=== PATIENT | male | born 1970 | race Caucasian/White ===

== ENCOUNTER 2018-11-07 13:41 | Inpatient (IN) | payer OTHER ==
[~2018-11-07] VITALS: Ht 175.3 cm; Wt 98.0 kg
[2018-11-07] MEDS ORDERED: MORPHINE SULFATE 4 MG/ML SYR/VIAL ONE (13:48)
[2018-11-07] MEDS ORDERED: HEPARIN SODIUM (PORCINE) 5000 UNITS/ML 1ML VIAL ONE (13:49)
[2018-11-07] MEDS ORDERED: ATROPINE SULFATE 1 MG/1 ML VIAL ONE (13:51)
[2018-11-07] MEDS ORDERED: EPINEPHrine HCL 1 MG/10 ML SYRG ONE (13:51)
[2018-11-07] MEDS ORDERED: SODIUM CHL 0.9% 50 ML ONE (13:51)
[2018-11-07] MEDS ORDERED: ANGIOMAX 250 MG VIAL IV ONE (13:51)
[2018-11-07] MEDS ORDERED: MIDAZOLAM HCL 1MG/1ML-2 ML VIAL ONE (13:51)
[2018-11-07] MEDS ORDERED: fentaNYL CITRATE 100 MCG/2 ML VL ONE (13:51)
[2018-11-07] MEDS ORDERED: METOPROLOL TARTRATE 1MG/1ML-5ML VIAL IV ONE ×2 (13:52→14:00)
[2018-11-07] MEDS ORDERED: LIDOCAINE 2%HCL (LOCAL ANESTH.) INJ 20ML MDV ONE (13:55)
[2018-11-07] MEDS ORDERED: IODIXANOL 320MG/ML 100ML BTL IV ONE (13:55)
[2018-11-07] MEDS ORDERED: HEPARIN SODIUM (PORCINE) 5000 UNITS/ML 1ML VIAL IV ONE (14:00)
[2018-11-07] MEDS ORDERED: MORPHINE SULF INJ 2 MG/ML SYRINGE 1ML IV PRN ×2 (14:00→15:30)
[2018-11-07] MEDS ORDERED: MORPHINE SULF INJ 2 MG/ML SYRINGE 1ML ONE (14:06)
[2018-11-07 14:22] LABS: Basophils # (auto) 0.1 uL; Basophils % (auto) 0.9 % (0.0-2.0); Eosinophils # (auto) 0.2 uL; Eosinophils % (auto) 2.1 % (0.0-7.0); Hematocrit 47.7 % (41.0-53.0); Hemoglobin 16.8 g/dL (13.5-17.5); Lymphocytes # (auto) 2.5 uL; Lymphocytes % (auto) 31.1 % (10.0-50.0); Mean Corpuscular Hemoglobin 30.6 pg (28.0-32.0); Mean Corpuscular Hgb Conc. 35.1 g/dL (32.0-36.0); Mean Corpuscular Volume 87.1 fL (80.0-100.0); Monocytes % (auto) 12.6 % (0.0-12.0); Neutrophils # (auto) 4.2 uL; Neutrophils % (auto) 53.3 % (37.0-80.0); Nucleated Red Blood Cells % 0.2 %; Platelet Count (auto) 219 10^3/uL (140-450); Red Blood Cells 5.48 10^6/uL (4.5-5.90); Red Cell Distribution Width 12.9 % (11.8-14.3); White Blood Cell 7.9 10^3/uL (4.4-10.8)
[2018-11-07] MEDS ORDERED: BUPIVACAINE 0.25% INJ 50ML VIAL ONE (14:32)
[2018-11-07 14:40] LABS: Chloride 107 mmol/L (98-107); Sodium 139 mmol/L (136-145)
[2018-11-07] MEDS ORDERED: NITROGLYCERIN 0.4MG/DOSE SPRAY 4.9GM ONE (14:46)
[2018-11-07 14:50] LABS: Albumin 3.8 g/dL (3.4-5.0); Anion Gap 12 (5-15); Blood Urea Nitrogen 19 mg/dL (7-18); Calcium 8.3 mg/dL (8.5-10.1); Carbon Dioxide 20 mmol/L (21-32); Glucose 115 mg/dL (74-106); INR 1.03 (0.9-1.15)
[2018-11-07 14:55] LABS: Alanine Aminotransferase 32 U/L (16-61); Alkaline Phosphatase 63 U/L (45-117); Aspartate Aminotransferase 24 U/L (15-37); BUN/Creatinine Ratio 19.2; Bilirubin, Total 0.8 mg/dL (0.2-1.0); GFR African American 105 mL/min; GFR Non-African American 86 mL/min; Total Protein 6.9 g/dL (6.4-8.2)
[2018-11-07] MEDS ORDERED: EPTIFIBATIDE INJ (2MG/ML) 10ML VIAL IV ONE (14:55)
[2018-11-07] MEDS ORDERED: CLOPIDOGREL 300 MG TAB ONE (15:04)
[2018-11-07 15:05] LABS: Partial Thromboplastin Time 154.3 sec (23.78-33.04)
[2018-11-07 15:17] LABS: Potassium 2.8 mmol/L (3.5-5.1)
[2018-11-07] MEDS ORDERED: NITROGLYCERIN 0.4 MG SL TAB SL PRN (15:30)
[2018-11-07] MEDS ORDERED: ONDANSETRON HCL 4 MG/2 ML VIAL IV PRN (15:30)
[2018-11-07] MEDS ORDERED: SODIUM CHLORIDE 0.9% 1,000 ML IV ONE (15:30)
[2018-11-07] MEDS ORDERED: POTASSIUM CHL 10% (20 MEQ/15ML) 15ml ORAL SOLN PO ONE (15:30)
[2018-11-07] MEDS ORDERED: HYDROcodone-ACET 5/325MG TAB PO PRN (15:30)
[2018-11-07] MEDS ORDERED: ACETAMINOPHEN 500 MG TAB PO PRN (15:30)
[2018-11-07] MEDS ORDERED: SIMV-13 PO (15:48)
[2018-11-07] MEDS ORDERED: PANT40T PO (15:48)
[2018-11-07] MEDS ORDERED: ASPI81TA27 PO (15:48)
--- NOTE | 2018-11-07 16:50 | NUR ---
Report received from BRANDON ALFORD. 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 Patient transfered to unit bed, connected to environmental compliance technician #2 reading sinus pedro 51. Catheterization site assessed for any bleeding, redness or swelling. Pedal pulses on affected leg assessed for positive tissue perfusion. Patient instructed on need to notify staff immediately if any pain, burning or wetness to site, and any lower back pain. Patient educated on new cardiac medications. All questions and concerns addressed, patient verbalized understanding of all education and instruction. Bed at reverse trendelenbug position, instructed to lie flat for another 30 minutes, verbalized understanding. Side-rails up x2 for safety, call light on hand, instructed to call for assistance PRN.
--- NOTE | 2018-11-07 19:00 | NUR ---
CRITICAL TROPONIN OF 29.9 ASSESSED PATIENT, AWAKE AND ALERT, CURRENTLY EATING DINNER WITH FAMILY AT BEDSIDE. NO COMPLAINTS OF CHEST PAIN SOB OR DISTRESS AT THIS TIME. WILL CONTINUE TO MONITOR Q1HR AND PRN.
[2018-11-07 20:00] VITALS: BP 175/112
[2018-11-07 21:48] VITALS: BP 145/81
[2018-11-07] MEDS: SODIUM CHLOR 0.9% PF (SALINE LOCK) 10ML VIAL/SYR IV SCH (22:53)
--- NOTE | 2018-11-08 04:00 | NUR ---
Patient c/o chest pain for the first time since before heart cath. Vitals stable. Nitro given x2 along with morphine x1 per orders. Patient had some relief. Patient also stated " I have anxiety as well which could be that making it worse. "Instructed deep breathing exercises as well as a dark quiet environment. Hasnt slept much through the night. EKG done. No changes from previous EKG yesterday. Will page Dr. Castillo as well. Continuing to monitor closely.
[2018-11-08 05:00] VITALS: BP 115/76
--- NOTE | 2018-11-08 05:30 | NUR ---
Paged Jonathan to notify him of elevated troponin and chest pain earlier. Awaiting return phone call. Patient feeling better. Resting at this time. Call light within reach.
[2018-11-08] MEDS: SODIUM CHLOR 0.9% PF (SALINE LOCK) 10ML VIAL/SYR IV SCH ×3 (06:00→23:05)
--- NOTE | 2018-11-08 07:09 | NUR ---
Text Dr. Castillo to report troponin level and to update on patients night. Pt resting at this time. No distress noted. Awaiting response from MD. Will endorse to Day RN
--- NOTE | 2018-11-08 07:20 | NUR ---
Opening Shift Note Assumed care of patient, awake and alert. No S/S of distress/SOB or pain. Instructed on POC and to call for assist PRN, will continue to monitor for changes Q1hr and PRN.
[2018-11-08 08:00] VITALS: BP 114/70
--- NOTE | 2018-11-08 08:12 | NUR ---
Critical Troponin Troponin 90.5. Patient asymptomatic. Dr. Jonathan walters.
[2018-11-08 08:16] VITALS: BP 114/70
[2018-11-08] MEDS: ASPirin 81 mg TAB PO SCH (09:10)
[2018-11-08] MEDS: ATORVASTATIN 20 MG TAB PO SCH (09:11)
[2018-11-08] MEDS: CLOPIDOGREL BISULFATE 75 MG TAB PO SCH (09:12)
[2018-11-08] MEDS: PANTOPRAZOLE 40 MG TAB PO SCH (09:12)
[2018-11-08 12:55] VITALS: BP 130/75
[2018-11-08 16:26] VITALS: BP 145/82
[2018-11-08] MEDS ORDERED: POTASSIUM CHL 20 Meq TABLET PO ONE (17:00)
[2018-11-08 22:00] VITALS: BP 127/78
[2018-11-09 05:00] VITALS: BP 122/80
[2018-11-09 05:54] LABS: Basophils # (auto) 0 uL; Basophils % (auto) 0.7 % (0.0-2.0); Eosinophils # (auto) 0.2 uL; Eosinophils % (auto) 2.9 % (0.0-7.0); Hematocrit 44.2 % (41.0-53.0); Hemoglobin 15.6 g/dL (13.5-17.5); Lymphocytes # (auto) 1.6 uL; Lymphocytes % (auto) 25.6 % (10.0-50.0); Mean Corpuscular Hemoglobin 31.3 pg (28.0-32.0); Mean Corpuscular Hgb Conc. 35.2 g/dL (32.0-36.0); Monocytes # (auto) 0.6 uL; Monocytes % (auto) 8.9 % (0.0-12.0); Neutrophils % (auto) 61.9 % (37.0-80.0); Nucleated Red Blood Cells % 0.8 %; Platelet Count (auto) 139 10^3/uL (140-450); Red Blood Cells 4.97 10^6/uL (4.5-5.90); Red Cell Distribution Width 13.2 % (11.8-14.3); White Blood Cell 6.4 10^3/uL (4.4-10.8)
[2018-11-09 06:10] LABS: Calcium 8.4 mg/dL (8.5-10.1); Potassium 3.9 mmol/L (3.5-5.1)
[2018-11-09] MEDS: SODIUM CHLOR 0.9% PF (SALINE LOCK) 10ML VIAL/SYR IV SCH (06:25)
[2018-11-09 06:28] LABS: Cholesterol 213 mg/dL (< 200); Triglycerides 99 mg/dL (< 150)
[2018-11-09 06:31] LABS: HDL Cholesterol 50 mg/dL (40-59); LDL Cholesterol 150 mg/dL (< 100)
[2018-11-09 08:00] VITALS: BP 133/92
[2018-11-09 09:00] VITALS: BP 133/92
[2018-11-09] MEDS: PANTOPRAZOLE 40 MG TAB PO SCH (09:21)
[2018-11-09] MEDS: ATORVASTATIN 20 MG TAB PO SCH (09:21)
[2018-11-09] MEDS: CLOPIDOGREL BISULFATE 75 MG TAB PO SCH (09:21)
[2018-11-09] MEDS: ASPirin 81 mg TAB PO SCH (09:21)
[2018-11-09 12:12] VITALS: BP 175/112
--- NOTE | 2018-11-09 13:14 | NUR ---
Discharge from Tele Discharge instructions given as ordered. Encourage to follow up with PMD as instructed. All questions and concerns addressed. Patient verbalized understanding. Medication reconciliation form completed and copy given to patient. IV removed with catheter intact, pressure dressing applied. Telemetry unit returned to ICU. Patient taken to vehicle via wheelchair with all personal belongings, accompanied by staff and family member. No distress noted at time of departure.
== END 2018-11-09 13:13 | disposition home or self-care (01) | DRG 247 ==
LOC: EDBD 13:41 → ER 13:46 → EEVIPCON 13:46 → CATH 13:50 → TELE-WESTW 17:26
PROVIDERS: ADMIT Internal Medicine Cardiovascular Disease; ATTEND Internal Medicine
PROC: 027034Z Dilation of Coronary Artery, One Artery with Drug-eluting Intraluminal Device, Percutaneous Approach (ICD-10-PCS; principal; 2018-11-08)
PROC: 4A023N7 Measurement of Cardiac Sampling and Pressure, Left Heart, Percutaneous Approach (ICD-10-PCS; 2018-11-08)
PROC: B2111ZZ Fluoroscopy of Multiple Coronary Arteries using Low Osmolar Contrast (ICD-10-PCS; 2018-11-08)
PROC: 3E033PZ Introduction of Platelet Inhibitor into Peripheral Vein, Percutaneous Approach (ICD-10-PCS; 2018-11-08)
DX: I21.19 ST elevation (STEMI) myocardial infarction involving other coronary artery of inferior wall (principal); E78.5 Hyperlipidemia, unspecified; E66.9 Obesity, unspecified; Z68.31 Body mass index [BMI] 31.0-31.9, adult; I10 Essential (primary) hypertension; E87.6 Hypokalemia; Z79.02 Long term (current) use of antithrombotics/antiplatelets; Z79.82 Long term (current) use of aspirin; Z79.899 Other long term (current) drug therapy; Z82.49 Family history of ischemic heart disease and other diseases of the circulatory system; Z95.5 Presence of coronary angioplasty implant and graft; Z88.5 Allergy status to narcotic agent; Z88.0 Allergy status to penicillin; Z88.8 Allergy status to other drugs, medicaments and biological substances
CPT/HCPCS: 36415; 71045; 80048; 80053; 80061; 82962; 83735; 84132; 84484; 85025; 85610; 85730; 92928; 93005; 93458; 99152; A6257; C1874; C1887; G0378; J0461; J2250; J2405; J3490; Q9967

== ENCOUNTER → 2022-07-13 | Outpatient (CLI) | payer OTHER ==
[~2022-07-13] MED LIST: ASPI-543 PO; PANT40T PO; SIMV-13 PO
[2022-07-13 12:41] LABS: Basophils # (auto) 0.1 10 ^3/uL (0-0.2); Basophils % (auto) 1.2 % (0.0-2.0); Eosinophils # (auto) 0.2 10 ^3/uL (0-0.8); Eosinophils % (auto) 4.4 % (0.0-7.0); Hematocrit 49.7 % (41.0-53.0); Hemoglobin 17.5 g/dL (13.5-17.5); Lymphocytes # (auto) 1.6 10 ^3/uL (0.4-5.4); Lymphocytes % (auto) 28.8 % (10.0-50.0); Mean Corpuscular Hemoglobin 31.7 pg (28.0-32.0); Mean Corpuscular Hgb Conc. 35.2 g/dL (32.0-36.0); Mean Corpuscular Volume 90.1 fL (80.0-100.0); Monocytes # (auto) 0.5 10 ^3/uL (0-1.3); Monocytes % (auto) 9.2 % (0.0-12.0); Neutrophils # (auto) 3.1 10 ^3/uL (1.6-8.6); Neutrophils % (auto) 56.4 % (37.0-80.0); Nucleated Red Blood Cells % 0.7 %; Red Blood Cells 5.52 10^6/uL (4.5-5.90); Red Cell Distribution Width 13.2 % (11.8-14.3); White Blood Cell 5.6 10^3/uL (4.4-10.8)
[2022-07-13 13:38] LABS: Albumin 4.1 g/dL (3.4-5.0); Potassium 4.6 mmol/L (3.5-5.1)
[2022-07-13 13:48] LABS: BUN/Creatinine Ratio 19.8; Bilirubin, Total 0.8 mg/dL (0.2-1.0); Calcium 9.3 mg/dL (8.5-10.1); Total Protein 7.1 g/dL (6.4-8.2)
[2022-07-13 13:55] LABS: Free T4 (Free Thyroxine) 0.98 ng/dL (0.89-1.76)
[2022-07-13 13:56] LABS: Prostate Specific Antigen 0.81 ng/mL (0.0-4.0)
== END | disposition home or self-care (01) ==
LOC: LAB 12:08
PROVIDERS: ATTEND Nurse Practitioner Family
DX: I10 Essential (primary) hypertension (principal); E78.5 Hyperlipidemia, unspecified; R35.1 Nocturia; F41.9 Anxiety disorder, unspecified
CPT/HCPCS: 36415; 80053; 80061; 84153; 84439; 84443; 85025